=== PATIENT | female | born 1965 | race American Indian/Alaskan Native ===

== ENCOUNTER 2017-04-09 11:57 | Emergency (ER) | payer MEDICAID ==
[2017-04-09 11:58] VITALS: BMI 32.5
[2017-04-09 12:42] VITALS: RESP 18
--- NOTE | 2017-04-09 13:18 | C.PDOC ---
History Of Present Illness 51 yr old female presents to the ER stating last night while at a motel she slipped and fell in the bath tub, injuring he right wrist. Patient states the pain and swelling was not so bad last night, however it worsened this morning. Patient denies chest pain, SOB, nausea, vomiting, neck pain, back pain, weakness , numbness, bruising or cuts. Time Seen by Provider: 04/09/17 12:11 Chief Complaint (Nursing): Upper Extremity Problem/Injury History Per: Patient History/Exam Limitations: no limitations Onset/Duration Of Symptoms: Gradual (Last night) Current Symptoms Are (Timing): Still Present Past Medical History Reviewed: Historical Data, Nursing Documentation, Vital Signs Vital Signs: Last Vital Signs Temp 98.2 F 04/09/17 13:32 Pulse 88 04/09/17 13:32 Resp 18 04/09/17 13:32 BP 156/96 H 04/09/17 13:32 Pulse Ox 99 04/09/17 13:32 - Medical History PMH: Diabetes, Emphysema, HTN, Hyperlipidemia Family History: States: No Known Family Hx - Social History Hx Tobacco Use: Yes (1 pack a day) Hx Alcohol Use: No Hx Substance Use: No - Immunization History Hx Tetanus Toxoid Vaccination: No Hx Influenza Vaccination: No Hx Pneumococcal Vaccination: No Review Of Systems Except As Marked, All Systems Reviewed And Found Negative. Cardiovascular: Negative for: Chest Pain Respiratory: Negative for: Shortness of Breath Gastrointestinal: Negative for: Nausea, Vomiting Musculoskeletal: Positive for: Other ((+) Right wrist injruy ). Negative for: Neck Pain, Back Pain Skin: Negative for: Bruising Neurological: Negative for: Weakness, Numbness Physical Exam - Physical Exam Appears: Non-toxic, No Acute Distress Skin: Normal Color, Warm, Dry Head: Atraumatic, Normacephalic Oral Mucosa: Moist Neck: Normal, Normal ROM, Supple Chest: Symmetrical, No Tenderness Cardiovascular: Rhythm Regular, No Murmur Respiratory: Normal Breath Sounds, No Rales, No Rhonchi, No Stridor, No Wheezing Back: Normal Inspection, No CVA Tenderness Extremity: Normal ROM (To right wrist, elbow and shoulder.), Other (Right Wrist - Mild to moderate tenderness and swelling to the distal and dorsal aspect of the right wrist. ) Pulses: Left Radial: Normal, Right Radial: Normal Neurological/Psych: Oriented x3, Normal Speech, Normal Motor Gait: Steady ED Course And Treatment O2 Sat by Pulse Oximetry: 100 (RA) Pulse Ox Interpretation: Normal - Other Rad X-Ray - Right Wrist X-Ray: Interpreted by Me, Viewed By Me Interpretation: Negative for fractures. Progress Note: Velcro splint applied by electromedical equipment technician and checked by me. Medical Decision Making Medical Decision Making: PLAN: * X-Ray - Right Wrist * Tylenol PO Disposition - Disposition Referrals: Delfino Garner III, MD [Staff Provider] - Disposition: HOME/ ROUTINE Disposition Time: 13:15 Condition: GOOD Additional Instructions: Follow up with the Orthopedist within 1-2 days. Return if worsened. Instructions: Wrist Sprain (ED) Forms: [employer] (Cit[place]) - Clinical Impression Clinical Impression: Wrist sprain - PA / PHYS ASST / Resident Statement MD/DO has reviewed & agrees with the documentation as recorded. - Scribe Statement The provider has reviewed the documentation as recorded by the Scribe Christin Sarkar All medical record entries made by the Scribe were at my direction and personally dictated by me. I have reviewed the chart and agree that the record accurately reflects my personal performance of the history, physical exam, medical decision making, and the department course for this patient. I have also personally directed, reviewed, and agree with the discharge instructions and disposition.
[2017-04-09 13:35] VITALS: BP 156/96; PULSE 88; TEMP 98.2
--- NOTE | 2017-04-09 16:34 | RAD ---
PROCEDURE: Right Wrist Radiographs. HISTORY: wrist injury pain to the distal wrist COMPARISON: None. FINDINGS: BONES: Normal. No fracture. JOINTS: Normal. No dislocation. SOFT TISSUES: Normal. OTHER FINDINGS: None. IMPRESSION: Normal right wrist radiographs.
[2017-04-12 09:33] VITALS: O2SAT 100
== END 2017-04-09 14:08 | disposition home or self-care (01) ==
LOC: C.ER 11:57
DX: S63.501A Unspecified sprain of right wrist, initial encounter (principal); W18.2XXA Fall in (into) shower or empty bathtub, initial encounter